=== PATIENT | female | born 1950 | race Caucasian/White ===

== ENCOUNTER 2018-07-12 09:13 | Inpatient (IN) ==
[~2018-07-12 09:13] MED LIST: Vancomycin 1,000 MG, Sodium Chloride IRRigation 1,000 ML IR ONE
[2018-07-12] MEDS ORDERED: Clindamycin 900 MG/50 ML 900 MG/50 ML IV.SOLN IVPB ONE (09:34)
[2018-07-12] MEDS ORDERED: Ringers Solution, Lactated 1,000 ML IVC SCH (09:45)
[2018-07-12] MEDS ORDERED: Famotidine 20 MG/2 ML VIAL IVP ONE (09:50)
[2018-07-12] MEDS ORDERED: Acetaminophen IV 1,000 MG/100 ML INFUS..BTL IVPB ONE (09:51)
[2018-07-12] MEDS ORDERED: Albuterol 2.5 MG/3 ML NEBULIZER IH ONE (10:16)
--- NOTE | 2018-07-12 10:22 | Anesthesia Evaluation PreOp ---
Date of Encounter: 07/12/18 Time of Encounter: 10:20 - Past History Planned Operation: Left Endarterectomy Cardiac History: Other (PVD) Pulmonary History: Smoker, COPD SOFTWARE TEAM LEADER History: Denies Any Significant HX Other Medical History: Diabetes Type II Anesthesia History: No Prior Anesthetic Complications Alcohol Use: none Drug use: none Medications and Allergies Aspirin Enteric Coated [Aspirin EC] 81 mg PO DAILY #90 tablet. 06/05/18 [Rx] Clopidogrel [Plavix] 75 mg PO DAILY 06/26/18 [History] Sulfamethoxazole/Trimeth DS [Bactrim DS] 1 each PO BID 07/12/18 [History] Allergy/AdvReac Type Severity Reaction Status Date / Time cephalexin [From Keflex] Allergy Rash Verified 06/05/18 07:25 oxycodone [From Percocet] Allergy See Verified 06/26/18 07:25 Comments - Meds/Allergy Pre-op Review Medications Reviewed: Yes Allergies Reviewed: Yes Beta Blockers on Current Med List: No Anesthesia Results - Labs Laboratory Tests 07/08/18 07/08/18 16:30 16:30 Hgb 16.0 H Hct 46.8 H Plt Count 274 Sodium 137 Potassium 4.0 BUN 13 Creatinine 0.53 L - Imaging EKG: report reviewed (SR with sinus arrhythmia) Additional studies: Stress Test 2019 non diagnostic for ischemia EF 70% Anesthesia Exam O2 Sat Height 1.68 m Height 1.68 m Weight 78.471 kg Weight 78.471 kg O2 Sat by Pulse Oximetry 94 O2 Sat by Pulse Oximetry 94 Vital Signs Temp Pulse Resp BP Pulse Ox 98.2 F 79 18 136/79 94 07/12/18 09:30 07/12/18 09:30 07/12/18 09:30 07/12/18 09:30 07/12/18 09:30 Height: 5'6 Weight: 173 lbs NPO (# of Hours): MN Pain Scale: 0 - HEENT Pupil (Motor): Pupils equal, EOMI Mallampati: III Teeth: Missing Oral Opening: Less than or equal to 3 - SOFTWARE TEAM LEADER LOC: Oriented SOFTWARE TEAM LEADER Motor: Normal RUE, Normal LUE, Normal RLE, Normal LLE, Normal Face SOFTWARE TEAM LEADER Sensory: Normal: RUE, LUE, RLE, LLE, Face - Cardiac Rhythm: Regular Murmur: None JVD: No Carotid Bruit: No - Pulmonary Breath Sounds: bilateral Clear Respiratory Effort: Symmetrical Anesthesia Assess/Plan ASA Score: 3 (PVD) Level of consciousness: Cooperative, Oriented Anesthetic Plan: General Regional Nerve Block Plan: Adductor canal Autologous Blood: No Monitoring Plan: Standard Monitors Recovery Plan: PACU (Discussed GA, agrees to proceed)
--- NOTE | 2018-07-12 10:32 | History & Physical Report ---
Date of Encounter: 07/12/18 Time of Encounter: 10:25 24 Hour HP Update - Instructions Instructions: If the History and Physical is less than 30 days old and was completed prior to A.M. admission and or procedure and has NOT been updated on calendar day of procedure please complete this update prior to performing procedure. - Update Patient reports changes in Medical Condition: No Changes in examination, assessment, or condition: No Changes in Medication: No Preop tests/diagnostics Reviewed: Yes Surgery Remains Indicated: Yes Consent for Planned Operative Procedure(s) Verified: Yes - Pre-Operative Checklist Preoperative Checklist Indicated: No
[2018-07-12] MEDS ORDERED: *HR* OxyCODONE Immed Rel 5 MG TABLET PO PRN (11:32)
[2018-07-12] MEDS ORDERED: *HR* FentaNYL (PF) 100 MCG/2 ML VIAL IVP PRN (11:32)
[2018-07-12] MEDS ORDERED: Ondansetron 4 MG/2 ML VIAL IVP ONE (11:32)
[2018-07-12] MEDS ORDERED: Heparin 1,000 UNITS/500 mL 500 ML ONE ×2 (11:39→11:41)
[2018-07-12] MEDS ORDERED: *HR* Midazolam HCl 2 MG/2 ML VIAL ONE (11:49)
[2018-07-12] MEDS ORDERED: *HR* FentaNYL (PF) 100 MCG/2 ML VIAL ONE (11:49)
[2018-07-12] MEDS ORDERED: *HR* Rocuronium Bromide 50 MG/5 ML VIAL ONE ×2 (11:50→13:25)
[2018-07-12] MEDS ORDERED: Lidocaine -MPF 4% 5 ML AMPUL ONE (11:50)
[2018-07-12] MEDS ORDERED: Ondansetron 4 MG/2 ML VIAL ONE ×2 (11:50→14:35)
[2018-07-12] MEDS ORDERED: Lidocaine -MPF 2% 2 ML VIAL ONE (11:50)
[2018-07-12] MEDS ORDERED: EPHEDrine 50 MG/ML VIAL ONE (12:43)
[2018-07-12] MEDS ORDERED: Dexamethasone 4 MG/ML VIAL ONE (13:16)
[2018-07-12] MEDS ORDERED: Neostigmine Methylsulfate 3 MG/3 ML SYRINGE ONE (13:18)
[2018-07-12] MEDS ORDERED: *HR* Heparin 5,000 UNIT/ML VIAL ONE ×2 (13:29)
--- NOTE | 2018-07-12 15:03 | Operative Note ---
Date of procedure: 07/12/18 Pre-op diagnosis: Peripheral vascular disease with ulceration Post-op diagnosis: same Procedure: 1. Left superficial femoral and popliteal artery endarterectomy with bovine pericardial patch angioplasty. 2. Left popliteal and tibial thrombectomy with 4-Algerian Shyann catheter. Complications: None Anesthesia: GETA Surgeon: Tre Shaw Was there an event sales assistant present: No Estimated blood loss (cc): 50 Specimen: Left lower extremity plaque Condition: stable Disposition: PACU Procedure in Detail: Indications: The patient is a 67-year-old female with a history of diabetes, tobacco abuse and peripheral vascular disease with disabling claudication, rest pain and ulceration. She is found have a left superficial femoral artery occlusion. Revascularization was recommended to reduce her risk of limb loss and alleviate her symptoms. Operative procedure: The patient was identified in the preoperative area. The risks, benefits and alternatives were discussed and all questions were answered. The patient was then taken to the operating room and placed in the supine position on the operating table. After the induction of general endotracheal anesthesia she was cleaned and draped in normal sterile fashion. A longitudinal incision was then made in the left medial distal thigh. The processes of blunt, sharp and electrocautery dissection the muscle fascia was traversed and the left distal superficial femoral artery and distal above-knee popliteal artery were dissected circumferentially and surrounded with vessel loops. Significant inflammation was noted to be present overlying the distal superficial femoral artery and proximal popliteal artery. The patient received 5000 units of heparin intravenously. After waiting adequate time for the heparin to circulate the vessels were occluded and applying tension to the Vesseloops proximally and distally. A longitudinal arteriotomy was made into the distal superficial femoral and proximal popliteal artery. Chronic thrombus as well as dense nearly occlusive calcified plaque was present within the lumen. Using a dental freer and endarterectomy was performed of the distal superficial femoral artery and proximal popliteal artery. Release of the proximal vessel loop revealed pulsatile flow. Release of the distal vessel loops revealed no flow. A 4-Algerian Shyann embolus to be catheter was passed distally into the tibial vessels. The balloon was inflated and the catheter was withdrawn. Large amount of well organized thrombus was removed. Additional passes of the Shyann catheter revealed no additional thrombus. Retrograde flow was then noted through the popliteal artery. The lumen was irrigated with heparinized saline. Tension was then applied to the vessel loop. A bovine pericardial patch was cut to fit the arteriotomy. The patch was sutured in place with a running 6-0 Prolene. Prior to completing the patch closure, the vessel was flushed antegrade and retrograde. Heparinized saline was infused into the lumen. The patch closure was completed and flow was restored. Polyphasic signals were noted distal to the patch as well as at the posterior tibial and anterior tibial arteries. The wound was irrigated with saline. Meticulous hemostasis was obtained throughout with large cautery. Platelet rich and platelet poor plasma were infused into the wound. The wound was reapproximated with 2 and 3-0 Vicryl suture. The skin was reapproximated with a running 3-0 Monocryl suture. Sterile dressing was applied. The patient is an expanding the recovery room in stable condition.
[2018-07-12] MEDS ORDERED: *HR* Labetalol 20 MG/4 ML SYRINGE IVP PRN ×2 (15:07→16:37)
--- NOTE | 2018-07-12 15:07 | Discharge Summary ---
Orders not resulted at time of discharge: Pending orders 07/11/18 Red Blood Cells [BBK] Routine 07/12/18 14:45 Surgical Pathology [PTH] Routine Date of Encounter: 07/12/18 - Discharge Diagnosis (1) Atherosclerosis of [place] arteries of left leg with ulceration of other part of foot Status: Acute - Hospital Course Hospital course: Ms. Fox is a 67 year old female - Time Spent with Patient Total time spent providing and/or coordinating discharge services: - Discharge Medications Prescriptions: New RX: HYDROcodone/Acet 5/325 mg [[place] 5-325 mg] 1 tab PO Q4H PRN 4 Days #24 tab PRN Reason: Postoperative pain Continue RX: Aspirin Enteric Coated [Aspirin EC] 81 mg PO DAILY #90 tablet. RX: Clopidogrel [Plavix] 75 mg PO DAILY RX: Sulfamethoxazole/Trimeth DS [Bactrim Ds] 1 each PO BID Home Medications: RX: Aspirin Enteric Coated [Aspirin EC] 81 mg PO DAILY #90 tablet. 06/05/18 [Rx] RX: Clopidogrel [Plavix] 75 mg PO DAILY 06/26/18 [History] RX: HYDROcodone/Acet 5/325 mg [[place] 5-325 mg] 1 tab PO Q4H PRN 4 Days #24 tab 07/12/18 [Rx] RX: Sulfamethoxazole/Trimeth DS [Bactrim Ds] 1 each PO BID 07/12/18 [History] Allergies/Adverse Reactions: Allergy/AdvReac Type Severity Reaction Status Date / Time cephalexin [From Keflex] Allergy Rash Verified 06/05/18 07:25 oxycodone [From Percocet] Allergy See Verified 06/26/18 07:25 Comments Primary care physician: PCP NONE - Discharge Instructions Follow Up With: Tre Shaw MD [Partnered Physician] - 08/14/18 3:50 pm NONE,PCP [Primary Care Provider] -
[2018-07-12] MEDS ORDERED: *HR* HYDROmorphone (PF) 1 MG/ML SYRINGE IVP PRN (15:13)
--- NOTE | 2018-07-12 16:18 | Anesthesia Evaluation Post Op ---
Date of Encounter: 07/12/18 Time of Encounter: 16:17 - Vital Signs Vital Signs: Vital Signs/O2 Sat, Most Current Temp Pulse Resp BP Pulse Ox 97.9 F 71 19 154/81 96 07/12/18 15:35 07/12/18 15:55 07/12/18 15:55 07/12/18 15:55 07/12/18 15:55 - Lungs Lungs: Clear Ascult./Percussion - Airway Airway: Non-obstructed - Cardiovascular Regular Rate - Mental Status Mental Status: Alert & Oriented, Answers Appropriately - Pain Pain Scale: 3 Pain Scale used: Numeric (1 - 10) - Nausea Vomiting Nausea Vomiting: Not Present - Hydration Hydration: Ice chips, Cleary catheter - Discharge PostOp Status: Transfer Patient to floor
[2018-07-12] MEDS ORDERED: traMADol 50 MG TABLET PO PRN (16:37)
[2018-07-12] MEDS ORDERED: Naloxone 0.4 MG/ML INJ IVP PRN (16:37)
[2018-07-12] MEDS ORDERED: Acetaminophen 325 MG TABLET PO PRN (16:37)
[2018-07-12] MEDS ORDERED: 0.9 % Sodium Chloride 1,000 ML IVC SCH (16:37)
[2018-07-12] MEDS ORDERED: *HR* HYDROcodone/Acet 5/325 mg TABLET PO PRN (16:37)
[2018-07-12] MEDS: Ketorolac 15 MG/ML VIAL IVP SCH ×2 (17:04→19:45)
[2018-07-12] MEDS: *HR* Metoprolol 5 MG/5 ML VIAL IVP SCH ×2 (17:05→17:06)
[2018-07-12] MEDS: Sulfamethoxazole/Trimeth DS 1 EACH TABLET PO SCH (21:48)
[2018-07-13] MEDS: *HR* Metoprolol 5 MG/5 ML VIAL IVP SCH ×3 (00:47→11:31)
[2018-07-13] MEDS: Ketorolac 15 MG/ML VIAL IVP SCH ×2 (00:47→05:02)
[2018-07-13 03:51] LABS: Basophils % 0.2 %; Hematocrit 39.1 % (35.3-44.9); Immature Granulocytes % 0.6 % (0-4); Lymphocytes # 2.1 K/mcL (0.6-4.6); Lymphocytes % 13.1 %; Mean Corpuscular HGB Conc 33.2 g/dL (31.6-35.5); Mean Corpuscular Hemoglobin 29.3 pg (28.0-33.3); Mean Corpuscular Volume 88.1 fL (83.0-100.0); Monocytes # 1.1 K/mcL (0.0-1.3); Monocytes % 6.9 %; Neutrophils # 12.8 K/mcL (1.6-8.9); Platelet Count 237 K/mcL (140-400); Red Blood Count 4.44 M/mcL (3.82-4.97); Red Cell Distribution Width 13.2 % (11.5-14.5); Segmented Neutrophils % 79.2 %
[2018-07-13 04:09] LABS: BUN/Creatinine Ratio 19 (6-26); Blood Urea Nitrogen 11 mg/dL (8-23); Carbon Dioxide 24 mEq/L (23-29); Chloride 100 mEq/L (98-107); Glucose 381 mg/dL (70-105); Osmolality,Calculated 291 (280-300); Potassium 4.4 mEq/L (3.5-5.1); Sodium 133 mEq/L (136-145); eGFR For Non-African Americans > 60 (> 60)
[2018-07-13] MEDS ORDERED: *HR* Heparin 5,000 UNIT/ML VIAL SQ SCH ×2 (06:00)
[2018-07-13] MEDS: Sulfamethoxazole/Trimeth DS 1 EACH TABLET PO SCH (07:25)
[2018-07-13] MEDS ORDERED: Aspirin Enteric Coated 81 MG Tablet PO SCH (09:00)
[2018-07-13 11:37] VITALS: BP 112/62
--- NOTE | 2018-07-13 15:55 | Vascular/[facility] Progress Note ---
Date of Encounter: 07/13/18 Time of Encounter: 15:53 - Assessment and plan (1) Atherosclerosis of [place] arteries of left leg with ulceration of other part of foot Current Visit: Yes Status: Acute Status post left femoral/popliteal artery endarterectomy. The patient is doing really well. Her pain is under control. Her hemoglobin is normal. Her blood sugar is elevated. The patient is taken aspirin and Plavix. The patient is to follow-up with Dr. Shaw in 7-10 days. She is to see her primary care physician early next week to address her diabetes. The patient claimed that she is not known to have diabetes. She elected not to stay in house to repeat her blood work for tomorrow and obtain a hemoglobin A1c. The patient would benefit from a statin. - Subjective Interval history: Mrs. Fox is status post left superficial femoral artery/popliteal endarterectomy. Her pain is controlled. The dressing is dry and intact. She has swelling involving her left leg. She is able to stand up and walk without any help. The patient claims that the pain she used to have at the ankle is improved. She wishes to go home. Mrs. Jerez blood work is acceptable except for elevated blood sugar of 381 mg/ dL. The patient claims that that she is not diabetic. I recommended to obtain a hemoglobin A1c. The patient wishes to have her test done by her nurse practitioner on an outpatient basis. - Physical Examination General: Present: No Apparent Distress HEENT: Present: Pupils equal Cardiac: Present: Reg Rate and Rhythm, Normal S1 and S2, No Murmur Lungs: Present: Normal Breath Sounds, No Wheeze, Rales, Rhonchi Neuro: Present: Alert and responsive Vascular: Present: Normal capillary refill, Pulse, diminished, Pulse, normal, Edema Abdomen: Present: Soft, Non-tender Skin: Present: No rashes noted on visualized skin Musculoskeletal: Present: No Chest Wall Tenderness Results 07/13/18 03:08 07/13/18 03:08 Lab Results, Last 24 hours 07/13/18 07/13/18 03:08 03:08 WBC 16.2 H Hgb 13.0 D Hct 39.1 Plt Count 237 Sodium 133 L Potassium 4.4 Chloride 100 Carbon Dioxide 24 BUN 11 Creatinine 0.58 L Glucose 381 H Calcium 9.0 Consult Discharge Plan - Plan Instructions: Heart Healthy Diet (DC), Peripheral Vascular Disorders (DC) Additional Instructions: RISK FACTORS: STOP SMOKING: If you smoke, STOP. Smoking or tobacco use significantly increases your risk of vascular disease because nicotine causes the arteries to narrow or constrict. It also causes fats to stick to the artery. Your chances of having vascular problems are greatly increased if you continue to smoke. For more information, call the education line for smoking cessation 9-425-JDAPPGS EAT A LOW FAT/CHOLESTEROL/SODIUM DIET: This diet may help reduce your chances of having vascular problems. LIFTING: Avoid lifting anything more than 10 pounds for 5-7 days Prior to straining, laughing, sneezing and/or coughing, apply manual pressure directly over insertion site. ACTIVITY: You may walk or climb stairs as tolerated You can resume sexual activity as tolerated In general, you are encouraged to engage in physical activity, such as walking, 20 minutes twice a day. BATHING Do not submerge the site into water (bath tub, hot tub, swimming pool) for 1 week. This can be a source for infection into the blood stream. You may shower after 24 hours SITE CARE: After 24 hours, you may remove the dressing and leave the site open to air. Keep the site clean and dry. Clean gently and pat dry. You can expect bruising and tenderness that gradually resolve within a week or two. Return to work as instructed per your physician Resume driving as instructed per physician Keep all scheduled follow up appointments Resume medications as instructed IMPORTANT: If prescribed a Platelet Aggregation Inhibitor such as, Plavix, Brilinta or Effient: Duration of therapy is minimum 3 months These medications are often used in combination with Aspirin Never discontinue unless advised by your Vascular Surgeon. STROKE (CVA) Risk factors for a stroke are: Age, cigarette smoking, diabetes, excessive alcohol consumption, family history, high blood pressure, overweight, physical inactivity, prior stroke, heart attack, carotid artery disease or other artery disease. Warning signs: Sudden numbness or weakness of the face, arm or leg; especially on one side of the body, sudden confusion, trouble speaking or understanding, sudden trouble seeing in one eye, sudden trouble walking, dizziness, loss of balance or coordination, sudden severe headache with no cause. Call 911 or go to the Emergency Room. Contact your physician if: You develop a fever greater than 101 degrees Fahrenheit Your site becomes reddened or has any drainage You have an increase in pain or burning at the site or if a large knot forms at the site. Referrals: Tre Shaw MD [Partnered Physician] - 08/14/18 3:50 pm Fabiana Miles CNP [Advanced Practice Nurse] - (please call for appointment within 1-2 weeks )
== END 2018-07-13 16:14 | disposition home or self-care (01) | DRG 254 ==
LOC: SAMDAY 09:13 → 2NNU 16:35
PROVIDERS: ADMIT Surgery; ATTEND Surgery